=== PATIENT | female | born 1965 | race Caucasian/White ===

== ENCOUNTER 2018-05-07 12:15 | Emergency (ER) | payer OTHER ==
[~2018-05-07] VITALS: Ht 172.7 cm; Wt 128.8 kg
[~2018-05-07 12:15] MED LIST: ALBU90OI; BUPR75; CARV3.125; CLON.5; CLON1; DOCU100; ESTR2; FLEXERIL; GABA100; HYDACE5; LUNESTA; NAPROXEN; PROM25 PO; Percocet 5-3251 EACH PO; QUET100; RANI150; SULTRIDS PO; TRAM50; ZOLOFT; [UNRECOGNIZED DRUG - REMARK]; [UNRECOGNIZED DRUG - REMARK]
== END 2018-05-07 13:06 | disposition home or self-care (01) ==
LOC: ER 12:15
DX: Z04.8 Encounter for examination and observation for other specified reasons (principal); F31.9 Bipolar disorder, unspecified; Z87.891 Personal history of nicotine dependence; Z79.899 Other long term (current) drug therapy
CPT/HCPCS: 99282

== ENCOUNTER 2019-02-26 13:06 | Emergency (ER) | payer OTHER ==
[~2019-02-26] VITALS: Ht 172.7 cm; Wt 90.7 kg
== END 2019-02-26 14:41 | disposition home or self-care (01) ==
LOC: ER 13:06
DX: S93.401A Sprain of unspecified ligament of right ankle, initial encounter (principal); F43.10 Post-traumatic stress disorder, unspecified; F31.9 Bipolar disorder, unspecified; M79.7 Fibromyalgia; Z88.8 Allergy status to other drugs, medicaments and biological substances; Z79.899 Other long term (current) drug therapy; Z87.891 Personal history of nicotine dependence; X58.XXXA Exposure to other specified factors, initial encounter
CPT/HCPCS: 29515; 73610; 99283-25

== ENCOUNTER 2019-07-13 08:06 | Day surgery (SDC) | payer OTHER ==
[~2019-07-13] VITALS: Ht 170.2 cm; Wt 134.8 kg
[~2019-07-13 08:06] MED LIST changes: +BUPR100 PO; +CARV3.125 PO; +CITA20 PO; +CLON1 PO; +CYCL10 PO; +DOCU100 PO; +ESTR2 PO; +GABA300 PO; +HYDR1TAB94 PO; +Indomethacin25 MG PO; +OMEP20ER PO; +TORS10 PO; +TRAM50 PO; +[UNRECOGNIZED DRUG - OTHER] PO
[2019-07-13] MEDS ORDERED: Synthroid88 MCG (09:10)
--- NOTE | 2019-07-13 10:16 | NUR ---
07/13/19 1016 Kassy Elliott EPI 1:10,000 MIXED BY RANDOLPH LEONARD FOR PLEDGETS ON FIELD
== END 2019-07-13 12:10 | disposition home or self-care (01) ==
LOC: ORSCSDS 08:06
PROVIDERS: Otolaryngology
PROC: 0CBM8ZZ Excision of Pharynx, Via Natural or Artificial Opening Endoscopic (ICD-10-PCS; principal; 2019-07-13 09:30)
DX: J39.2 Other diseases of pharynx (principal); R13.14 Dysphagia, pharyngoesophageal phase; I10 Essential (primary) hypertension; J45.909 Unspecified asthma, uncomplicated; G47.33 Obstructive sleep apnea (adult) (pediatric); E03.9 Hypothyroidism, unspecified; M79.7 Fibromyalgia; Z87.891 Personal history of nicotine dependence; E66.01 Morbid (severe) obesity due to excess calories; Z68.42 Body mass index [BMI] 45.0-49.9, adult; Z79.899 Other long term (current) drug therapy
CPT/HCPCS: 88304; J0171; J0330; J1100; J2250; J2405; J2704; J3010; J7120

== ENCOUNTER 2023-02-18 09:03 | Day surgery (SDC) | payer OTHER ==
[~2023-02-18] VITALS: Ht 172.7 cm; Wt 114.6 kg
[2023-02-18] VITALS (15 sets, daily range): BP systolic 99–152; BP diastolic 53–80
[~2023-02-18 09:03] MED LIST changes: +ALBU90OI INH; +AMPDEX10 PO; +BUTALB-CAFF-AC1 EACH PO; +CATAPRES0.1 MG PO; +EUTHYROX50 MCG PO; +PRAM.5 PO; +SENNA LAXATIVE8.6 MG PO; +TOPI100 PO; +VENL150ER PO
--- NOTE | 2023-02-18 11:08 | NUR ---
Ambulatory in Day SurgeryPre-Op teaching done. Pt verbalizes understanding. History, Chart, Medications and Allergies reviewed before start of procedure.Patient confirms NPO status and agrees with scheduled surgery.
[2023-02-18] MEDS ORDERED: AMAN100 (11:18)
--- NOTE | 2023-02-18 19:39 | NUR ---
SHIFT SUMMARY POD0 L TKA, A/OX4, VSS, TOLERATING PO, PAIN WELL MANAGED, AMBULATED PRIOR TO SHIFT CHANGE, ABLE TO VOID, FULL SENSATION BLE AFTER SPINAL IN OR. NO ACUTE EVENTS THIS SHIFT, CALL LIGHT IN REACH, REPORT GIVEN TO NOC RN.
[2023-02-19 00:03] VITALS: BP 110/84
[2023-02-19 04:00] VITALS: BP 126/73
[2023-02-19 05:07] LABS: BASOPHILS ABSOLUTE AUTO 0.02 K/mm3 (0.00-0.23); BASOPHILS PERCENT AUTO 0 % (0-2); EOSINOPHILS ABSOLUTE AUTO 0.03 K/mm3 (0.00-0.68); EOSINOPHILS PERCENT AUTO 0 % (0-6); Hematocrit 29.5 % (33.0-51.0); Hemoglobin 10.1 g/dL (11.5-16.0); IMMATURE GRAN ABSOLUTE AUTO 0.04 K/mm3 (0.00-0.10); IMMATURE GRAN PERCENT AUTO 0 % (0-1); LYMPHOCYTES ABSOLUTE AUTO 1.55 K/mm3 (0.84-5.20); LYMPHOCYTES PERCENT AUTO 15 % (21-46); MONOCYTES ABSOLUTE AUTO 0.47 K/mm3 (0.16-1.47); MONOCYTES PERCENT AUTO 4 % (4-13); Mean Corpuscular HGB 28.4 pg (26.0-34.0); Mean Corpuscular HGB Conc 34.2 g/dL (31.5-36.5); Mean Corpuscular Volume 83 fL (80-100); Mean Platelet Volume 9.1 fL (9.1-12.4); NEUTROPHILS ABSOLUTE AUTO 8.51 K/mm3 (1.96-9.15); NEUTROPHILS PERCENT AUTO 80 % (41-73); Platelet Count 295 K/mm3 (150-400); RDW Coefficient Variation 12.7 % (11.7-14.2); RDW Standard Deviation 38.7 fL (35.1-46.3); Red Blood Cell Count 3.56 M/mm3 (3.80-5.20); White Blood Cell Count 10.62 K/mm3 (4.00-11.30)
[2023-02-19 05:32] LABS: Bun/Creatinine Ratio 17.2 (12.0-20.0); Calcium, Blood 8.5 mg/dL (8.5-10.1); Creatinine, Blood 0.58 mg/dL (0.40-1.00); Potassium, Blood 3.6 mmol/L (3.5-5.5)
--- NOTE | 2023-02-19 05:51 | NUR ---
SHIFT SUMMARY A/OX4, 1P ASSIST WITH FWW AND GB. DRESSING TO L. KNEE C/D/I, HEMOVAC PATENT AND DRAINING. C/O PAIN, MEDICATED PER EMAR X2. VSS, NO ACUTE CHANGES AT THIS TIME. BED IN LOWEST POSITION WITH CALL LIGHT IN REACH. WILL CONTINUE TO MONITOR AND REPORT TO ONCOMING RN.
[2023-02-19 08:44] VITALS: BP 122/55
[2023-02-19 11:26] VITALS: BP 112/62
--- NOTE | 2023-02-19 12:12 | NUR ---
SHANE GARCIA UPDATED REGARDING HEMOVAC DRAIN OUTPUT. PER SHANE OK TO GIVE 500ML BOLUS OF LR TO INCREASE BP AND PREVENT BP DROP WHEN OOB. TORADOL CHANGED TO PRN PER SHANE. PLAN FOR PT TO REMAIN IN THE HOSPITAL OVERNIGHT AND FOR DRAIN TO BE REMOVED. WILL CONTINUE TO MONITOR.
[2023-02-19 15:10] VITALS: BP 128/68
--- NOTE | 2023-02-19 17:44 | NUR ---
NUMBNESS/TINGLING PT REPORTED NUMBNESS/TINGLING TO LLE THIS AFTERNOON. ITZEL WRAP REMOVED AND NEW ITZEL WRAP PLACED WELL CASSY HOSE REPLACED. PT REPORTS THIS HAS MOSTLY RELIEVED N/T. PT'S CAP REFIL TO THE L TOES IS 3 SECONDS, TOES ARE COOL BUT HAVE GOOD COLOR. PT IS ABLE TO WIGGLE HER TOES, PLANTAR AND DORSAL FLEX, AND SHE CAN FEEL WHEN HER FEET ARE TOUCHED. PEDAL AND TIBAL PULSES ARE PRESENT AND PALPABLE BUT WEAK, DOPPLER USED TO CONFIRM PULSES.
--- NOTE | 2023-02-19 17:47 | NUR ---
SHIFT SUMMARY PT IS POD#1 FROM L TKA WITH DR. HANDY. PT HAD MODERATE OUTPUT FROM HEMOVAC DRAING T/O THE DAY BUT IT APPEARS TO BE DECREASING THIS EVENING. PT WAS ABLE TO WORK WITH PHYSICAL THERAPY AND SIT IN THE CHAIR TODAY. PT TOLERATING PO. PAIN DIFFICULT TO MANAGE BUT PT IS TOLERATING PO PAIN MEDICATION. WILL MONITOR UNTIL REPORT TO BARBARA MINAYA.
[2023-02-19 19:19] VITALS: BP 125/72
[2023-02-20 04:19] VITALS: BP 123/61
--- NOTE | 2023-02-20 06:08 | NUR ---
SHIFT SUMMARY PT POD 1 LEFT TOTAL KNEE. PT HAS RESTED OFF AND ON MOST OF THE NIGHT. PT IS STILL VERY PAINFUL, SHE HAS REQUIRED PAIN MEDICATION ABOUT Q4HR. HEMOVAC DRAINING A MODERATE AMOUNT. PT DENIES IN N/T. SHE HAS BEEN UP AND AMBULATING TO THE BATHROOM, SLOW WITH MOVEMENT AND GETTING OOB. VITALS ARE STABLE. NO ACUTE CHANGES TO REPORT OVERNIGHT, BED IN LOWEST POSITION, CALL LIGHT WITHIN REACH.
[2023-02-20 07:08] VITALS: BP 128/69
[2023-02-20] MEDS ORDERED: ASPIR 8181 M1 PO (13:28)
[2023-02-20 14:09] VITALS: BP 135/65
[2023-02-20] MEDS ORDERED: Percocet 5-3251 EACH PO (14:09)
--- NOTE | 2023-02-20 14:40 | NUR ---
DISCHARGE PT PROVIDED WITH WRITTEN AND VERBAL DISCHARGE INSTRUCTIONS; SHE REPORTED UNDERSTANDING. PT MEETING ALL GOALS PRIOR TO DISCHARGE. PT CONSISTANTLY RATES HER PAIN HIGH AND RATED AT 9/10 AT TIME OF DISCHARGE. THIS RN SUGGESTED WAITING TO DISCHARGE UNTIL PAIN MEDICATION STARTED WORKING, PT DECLINED. BAG OF ICE PROVIDED FOR THE PATIENTS TRIP HOME. BELONGINGS SENT WITH PATIENT. POLAR PACK SENT HOME WITH PATIENT. DRESSINGS AND DRESSING CHANGE INSTRUCTIONS PROVIDED TO PATIENT. VSS AT TIME OF DISCHARGE. PT MET ALL GOALS PRIOR TO DISCHARGE. MED REC REVIEWED. PT ENCOURAGED TO REACH OUT TO DR. HANDY TO CLARIFY IF HOME MEDICATION TRILEPTAL SHOULD BE CONTINUED OR DISCONTINUED. PT ESCORTED OUT IN A W/C AT APPROXIMATELY 1425.
== END 2023-02-20 14:38 | disposition home or self-care (01) ==
LOC: ORSCMMR 09:03 → ORD 11:00 → ORSCMMR 11:00 → ORD 12:30 → SURS 15:50 → ORSCMMR 02-20 14:38
PROVIDERS: Orthopaedic Surgery
DX: M17.12 Unilateral primary osteoarthritis, left knee (principal); F41.8 Other specified anxiety disorders; F90.9 Attention-deficit hyperactivity disorder, unspecified type; F31.9 Bipolar disorder, unspecified; I10 Essential (primary) hypertension; E03.9 Hypothyroidism, unspecified; Z79.899 Other long term (current) drug therapy; Z98.84 Bariatric surgery status; E66.9 Obesity, unspecified; Z68.39 Body mass index [BMI] 39.0-39.9, adult
CPT/HCPCS: 27447; 20985; S2900; 36415; 73560-LT; 80048; 85025; 94760; 97110; 97116; 97162; 97530; A9270; C1776; J0171; J0690; J0735; J0780; J1885; J2250; J2405; J2704; J2795; J3010; J7120

== ENCOUNTER 2023-08-05 12:32 | Day surgery (SDC) | payer OTHER ==
[2023-08-05] VITALS (17 sets, daily range): BP systolic 102–135; BP diastolic 54–77
[~2023-08-05] VITALS: Ht 172.7 cm; Wt 117.0 kg
[~2023-08-05 12:32] MED LIST changes: +AMAN100 PO; +ASPIR 8181 M1 PO
[2023-08-05] MEDS ORDERED: OXCARBAZEPINE600 M1 PO (13:32)
[2023-08-05] MEDS ORDERED: TRAM50 PO (13:34)
[2023-08-05] MEDS ORDERED: Norco 5-325 Ta1 EACH PO (13:35)
--- NOTE | 2023-08-05 14:24 | NUR ---
Ambulatory in Day Surgery. History, Chart, Medications and Allergies reviewed before start of procedure. Patient confirms NPO status and agrees with scheduled surgery. Patient reports completing Chlorhexadine shower X2 prior to admission to hospital. Surgical site prepped with 2% Chlorhexidine cloth wipe.
[2023-08-05] MEDS ORDERED: TORSE20 PO (18:44)
[2023-08-05] MEDS ORDERED: AMAN100 PO (18:45)
--- NOTE | 2023-08-05 19:23 | NUR ---
patient to the room from pacu at 1830, vss, hx and screening done. patient aox4, tolerating po intake denies n/v, n/t. has some sensation. txa infused. ivf infusing tko. report given to rene hinojosa. [facility]
[2023-08-06 03:20] VITALS: BP 106/62
--- NOTE | 2023-08-06 04:50 | NUR ---
SHIFT SUMMARY POD1 R TKA. SENSATION AND CIRCULATION REMAIN INTACT. DRESSING IS C/D/I. VSS. PT SLEPT ON AND OFF T/O THE NIGHT. TOLLERATING PO INTAKE W/O N/V. AMBULATING TO BATHROOM TO VOID. PAIN HAS BEEN DIFFICULT TO MANAGE T/O THE NIGHT, PT REPORTS THIS HAS BEEN A STRUGGLE DURING PREVIOUS SURGERIES. OTHERWISE, NO ACUTE EVENTS NOTED. PLAN FOR PT TO WORK WITH PHYSICAL THERAPY TODAY AND D/C HOME
[2023-08-06 05:29] LABS: BASOPHILS ABSOLUTE AUTO 0.01 K/mm3 (0.00-0.23); BASOPHILS PERCENT AUTO 0 % (0-2); EOSINOPHILS ABSOLUTE AUTO 0.01 K/mm3 (0.00-0.68); EOSINOPHILS PERCENT AUTO 0 % (0-6); Hematocrit 28.5 % (33.0-51.0); Hemoglobin 9.2 g/dL (11.5-16.0); IMMATURE GRAN ABSOLUTE AUTO 0.04 K/mm3 (0.00-0.10); IMMATURE GRAN PERCENT AUTO 0 % (0-1); LYMPHOCYTES ABSOLUTE AUTO 0.95 K/mm3 (0.84-5.20); LYMPHOCYTES PERCENT AUTO 10 % (21-46); MONOCYTES ABSOLUTE AUTO 0.71 K/mm3 (0.16-1.47); MONOCYTES PERCENT AUTO 7 % (4-13); Mean Corpuscular HGB 27.9 pg (26.0-34.0); Mean Corpuscular HGB Conc 32.3 g/dL (31.5-36.5); Mean Corpuscular Volume 86 fL (80-100); Mean Platelet Volume 9.7 fL (9.1-12.4); NEUTROPHILS ABSOLUTE AUTO 8.15 K/mm3 (1.96-9.15); NEUTROPHILS PERCENT AUTO 83 % (41-73); Platelet Count 243 K/mm3 (150-400); RDW Coefficient Variation 14.5 % (11.7-14.2); RDW Standard Deviation 45.9 fL (35.1-46.3); White Blood Cell Count 9.87 K/mm3 (4.00-11.30)
[2023-08-06 06:14] LABS: Bun/Creatinine Ratio 19.3 (12.0-20.0); Creatinine, Blood 0.67 mg/dL (0.40-1.00); Potassium, Blood 4.1 mmol/L (3.5-5.5)
[2023-08-06 07:16] VITALS: BP 102/52
[2023-08-06] MEDS ORDERED: ASPI81CH PO (10:03)
[2023-08-06] MEDS ORDERED: Percocet 5-3251 EACH PO (10:03)
--- NOTE | 2023-08-06 12:38 | NUR ---
DISCHARGE PT A&OX4, VSS/RA, VIRGILIO PO, VOIDING, AMB SBA FWW/GB, UP TO CHAIR/BLE ELEVATED, DRESSED, PAIN MANAGED, IV DC'D. DC INS PROVIDED. PT REP UNDERSTANDING THOSE INSTRUCTIONS INCLUDING CASSY HOSE BILATERALLY, DRESSING CHANGES, PHYSICAL THERAPY EXERCISES, WBAT/FWW WITH ALL AMB, ICE AND ELEVATE AT REST. LEFT FLOOR VIA WC WITH MANAGER LVN TO GO HOME WITH FAMILY, WITH ALL PERSONAL POSSESSIONS INCLUDING AQUACEL DRESSINGS, AND 1 NARC SCRIPT.
== END 2023-08-06 12:29 | disposition home or self-care (01) ==
LOC: ORSCMMR 12:32 → SURS 18:15 → ORSCMMR 08-06 12:29
PROVIDERS: Orthopaedic Surgery
PROC: 0SRC0JA Replacement of Right Knee Joint with Synthetic Substitute, Uncemented, Open Approach (ICD-10-PCS; principal; 2023-08-05 15:30)
DX: M17.11 Unilateral primary osteoarthritis, right knee (principal); E66.9 Obesity, unspecified; Z68.39 Body mass index [BMI] 39.0-39.9, adult; F31.9 Bipolar disorder, unspecified; F32.A Depression, unspecified; F41.9 Anxiety disorder, unspecified; Z79.899 Other long term (current) drug therapy; I10 Essential (primary) hypertension; J45.909 Unspecified asthma, uncomplicated; G47.33 Obstructive sleep apnea (adult) (pediatric)
CPT/HCPCS: 36415; 73560-RT; 80048; 85025; 94760; 97110; 97116; 97162; 97530; A9270; C1713; C1776; J0171; J0690; J0735; J1170; J1885; J2250; J2371; J2704; J2795; J3010; J7120